=== PATIENT | male | born 1965 | race Caucasian/White ===

== ENCOUNTER 2019-02-18 15:56 | Emergency (ER) | payer BC ==
[~2019-02-18] VITALS: Ht 162.6 cm; Wt 63.5 kg
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
--- NOTE | 2019-02-18 16:14 | NUR ---
[facility]AV[facility] WORTHINGTON AT BEDSIDE FOR MSE.
[2019-02-18] MEDS ORDERED: HYDROCODONE/APAP 5-325MG TABLET PO ONE (16:15)
[2019-02-18] MEDS ORDERED: HYDROCODONE/APAP 5-325MG TABLET ONE (16:30)
[2019-02-18] MEDS ORDERED: NEOMY/BACITRA/POLYMYXIN B OINT UD PACKET TP ONE ×2 (16:30)
[2019-02-18] MEDS ORDERED: LET TOPICAL SOLUTION 8 ML UDC ONE (16:44)
[2019-02-18] MEDS ORDERED: LET TOPICAL SOLUTION 8 ML UDC TP ONE (16:45)
--- NOTE | 2019-02-18 16:45 | NUR ---
[facility] AT BEDSIDE FOR TA REPORT.
[2019-02-18 18:52] VITALS: BP 150/88
--- NOTE | 2019-02-18 18:52 | NUR ---
Patient discharged to home in stable conditon. Written and verbal after care instructions given. Patient verbalizes understanding of instructions. ALL BELONGINGS W/ PT. PT SELF-AMBULATED W/O DIFFICULTY. PT WILL BE DRIVEN HOME BY GIRLFRIEND IN PRIVATE VEHICLE.
== END 2019-02-18 18:53 | disposition home or self-care (01) ==
LOC: ER 15:59
DX: S20.212A Contusion of left front wall of thorax, initial encounter (principal); S70.311A Abrasion, right thigh, initial encounter; S60.512A Abrasion of left hand, initial encounter; S60.511A Abrasion of right hand, initial encounter; S49.91XA Unspecified injury of right shoulder and upper arm, initial encounter; V29.9XXA Motorcycle rider (driver) (passenger) injured in unspecified traffic accident, initial encounter; Y93.89 Activity, other specified; Y92.89 Other specified places as the place of occurrence of the external cause; Y99.8 Other external cause status
CPT/HCPCS: 71101; 73030; A4217; A4663